=== PATIENT | female | born 1975 | race Hispanic/Latino ===

== ENCOUNTER → 2017-10-08 | Outpatient (CLI) | payer OTHER ==
--- NOTE | 2017-10-08 16:30 | Diagnostic Imaging Report ---
EXAM: Transvaginal Pelvic Ultrasound INDICATION: \S\UNSPC'D OVARIAN CYST LT SIDE COMPARISON: Pelvic ultrasound 05/24/2015 TECHNIQUE: Grayscale transverse and sagittal transvaginal images were obtained of the pelvis. Transvaginal imaging was medically necessary to better evaluate the endometrium and the adnexa. CLINICAL HISTORY: 42 year old A0; last menstrual period: 10/08/2017. FINDINGS: Uterus Orientation: Normal Size: 6.3 x 3.7 x 3.3 cm, Normal Mass: None Cervix: Nabothian cysts Endometrium: Thickness: 0.6 cm, Normal. Appearance: Homogeneous echotexture without focal thickening. Right ovary: Not visualized secondary to overlying bowel gas Left ovary: Size: 1.8 x 1.5 x 1.6 cm Mass/Cyst: None Adnexa: Normal Cul-de-sac: No free fluid IMPRESSION: Right ovary not visualized secondary to overlying bowel gas. Otherwise, unremarkable pelvic ultrasound exam. Signed by: DR. Henrique Love MD on 10/08/2017 4:27 PM
== END ==
LOC: US 13:20
PROVIDERS: ATTEND Family Medicine
DX: N83.202 Unspecified ovarian cyst, left side (principal)
CPT/HCPCS: 76830